=== PATIENT | female | born 1995 | race Caucasian/White ===

== ENCOUNTER 2024-02-08 20:59 | Emergency (ER) | payer OTHER, SELFPAY ==
[2024-02-08 21:27] VITALS: BP 172/138; PULSE 130; TEMP 36.8; O2SAT 99; BMI 42.3
--- NOTE | 2024-02-08 22:23 | ED.NAVMDI1 ---
HPI - Nausea/Vomiting/Diarrhea General Chief complaint: Nausea/Vomiting/Diarrhea Stated complaint: Nausea/Vomiting Time Seen by Provider: 02/08/24 22:20 Source: patient Mode of arrival: walk-in Limitations: no limitations History of Present Illness HPI Narrative: history of cannabis hyperemesis syndrome. Presents with recurrent vomiting. No diarrhea or abdominal pain. State she is starting to have cramps of her extremities. No fever. No hematemesis Related Data Home Medications ?Medication ?Instructions ?Recorded ?Confirmed amlodipine 10 mg tablet 10 mg PO QDAY 02/08/24 02/10/24 buspirone 10 mg tablet 10 mg PO .q12 02/08/24 02/10/24 hydrochlorothiazide 25 mg tablet 25 mg PO QDAY 02/08/24 02/10/24 venlafaxine 150 mg 150 mg PO QDAY 02/08/24 02/10/24 capsule,extended release 24 hr norgestimate 0.25 mg-ethinyl 1 tab PO QDAY 02/10/24 02/10/24 estradiol 35 mcg tablet ([place]) promethazine 25 mg tablet 25 mg PO .q8 PRN nausea and 02/10/24 02/10/24 vomiting Previous Rx's ?Medication ?Instructions ?Recorded promethazine 25 mg tablet 25 mg PO Q6H PRN nausea and 02/10/24 vomiting #20 tabs Allergies Allergy/AdvReac Type Severity Reaction Status Date / Time No Known Drug Allergies Allergy Verified 02/10/24 17:11 Review of Systems ROS Status of ROS 10 or more systems reviewed and unremarkable except as noted in history and below Exam Constitutional Vital Signs, click to edit/add: Last Vital Signs Temp 98.2 F 02/08/24 21:27 Pulse 88 02/09/24 01:55 Resp 16 02/09/24 01:55 BP 146/88 H 02/09/24 01:55 Pulse Ox 98 02/09/24 01:55 O2 Del Method Room Air 02/09/24 01:55 Common normals: no apparent distress, average body habitus, oriented x3, no limitations, healthy appearing, alert and well nourished [facility] Common normals: normocephalic and head/scalp atraumatic Eye Common normals: EOMs intact bilaterally, conjunctivae normal and no scleral icterus Neck & C-Spine Common normals: full ROM Respiratory Common normals: normal respiratory effort, no retractions, no use of accessory muscles and clear to auscultation bilaterally Cardio Common normals: regular rate, regular rhythm, S1 normal heart sound and S2 normal heart sound GI Common normals: Normal to inspection, nondistended, normoactive bowel sounds present, soft to palpation and non-tender Extremity Common normals: normal to inspection and full ROM Neuro Common normals: oriented x3, CN's II-XII intact bilaterally and moves all extremities Psych Appearance: grossly normal Course Vital Signs Vital signs: Vital Signs Temperature 98.2 F 02/08/24 21:27 Pulse Rate 130 H 02/08/24 21:27 Respiratory Rate 20 02/08/24 21:27 Blood Pressure 172/138 H 02/08/24 21:27 Pulse Oximetry 99 02/08/24 21:27 Temperature 98.2 F 02/08/24 21:27 Pulse Rate 88 02/09/24 01:55 Respiratory Rate 16 02/09/24 01:55 Blood Pressure 146/88 H 02/09/24 01:55 Pulse Oximetry 98 02/09/24 01:55 Oxygen Delivery Method Room Air 02/09/24 01:55 MDM - Nausea/Vomiting/Diarrhea MDM Narrative Medical decision making narrative: patient presents with cannabis induced hyperemesis. Treated with anti emetics and fluids and is feeling better . labs with elevated WBC and lactic which are not un expected. She is feeling better and is discharged home with a prescription for Phenergan to use if needed Lab Data Labs: Lab Results 02/08/24 Range/Units 22:39 WBC 15.7 H (4.0-11.0) 10^3/uL RBC 4.95 (4.20-5.40) 10^6/uL Hgb 14.0 (12.0-16.0) g/dL Hct 41.3 (36.0-48.0) % MCV 83.4 (81.0-99.0) fL MCH 28.3 (26.7-34.0) pg MCHC 33.9 (29.9-35.2) g/dL RDW 12.0 (11.0-15.0) % Plt Count 409 (150-450) 10^3/uL MPV 9.9 (9.5-13.5) fL Neut % (Auto) 68.9 (43.0-75.0) % Lymph % (Auto) 22.1 (20.5-60.0) % [place] % (Auto) 6.9 (1.7-12.0) % Eos % (Auto) 0.6 L (0.9-7.0) % Baso % (Auto) 0.8 (0.2-2.0) % Neut # (Auto) 10.8 H (1.4-6.5) 10^3/uL Lymph # (Auto) 3.5 (1.2-3.8) 10^3/uL [place] # (Auto) 1.1 H (0.3-0.8) 10^3/uL Eos # (Auto) 0.1 (0.0-0.7) 10^3/uL Baso # (Auto) 0.1 (0.0-0.1) 10^3/uL Abs Immat Gran (auto) 0.11 H (0.00-0.03) 10^3/uL Imm/Tot Granulo (auto) 0.7 H (0.0-0.5) % Sodium 141 (136-145) mmol/L Potassium 3.0 L (3.5-5.1) mmol/L Chloride 103 (98-107) mmol/L Carbon Dioxide 17.8 L (21.0-32.0) mmol/L Anion Gap 23.2 BUN 12.0 (7.0-18.0) mg/dL Creatinine 1.12 H (0.55-1.02) mg/dL Est GFR ( Amer) >60 (>=60) Est GFR (Non-Af Amer) 59 L (>=60) BUN/Creatinine Ratio 10.7 Glucose 125 H (74-106) mg/dL Lactate 4.9 H* (0.4-2.0) mmol/L Calcium 10.0 (8.5-10.1) mg/dL Total Bilirubin 1.1 H (0.2-1.0) mg/dL AST 21 (15-37) U/L ALT 35 (14-59) U/L Alkaline Phosphatase 61 (46-116) U/L Total Protein 8.8 H (6.4-8.2) g/dL Albumin 4.5 (3.4-5.0) g/dL Globulin 4.3 g/dL Albumin/Globulin Ratio 1.0 Lipase 31.0 (16.0-77.0) U/L Urine HCG, Qual Negative (NEGATIVE) Discharge Plan Discharge Stand Alone Forms: Portal Instructions Chief Complaint: Nausea/Vomiting/Diarrhea Clinical Impression: Cannabis hyperemesis syndrome concurrent with and due to cannabis abuse Patient Disposition: Home, Self-Care Prescriptions / Home Meds: No Action venlafaxine 150 mg capsule,extended release 24hr 150 mg PO QDAY amlodipine 10 mg tablet 10 mg PO QDAY buspirone 10 mg tablet 10 mg PO .q12 hydrochlorothiazide 25 mg tablet 25 mg PO QDAY norgestimate-ethinyl estradiol [[place]] 0.25-35 mg-mcg tablet 1 tab PO QDAY promethazine 25 mg tablet 25 mg PO .q8 PRN (Reason: nausea and vomiting) promethazine 25 mg tablet 25 mg PO Q6H PRN (Reason: nausea and vomiting) Qty: 20 0RF Print Language: Macanese Instructions: Cannabis Use Disorder (ED) Referrals: Physician,Non-Staff, MD [Primary Care Provider] - 1 week Discharge Date/Time: 02/09/24 01:58
[2024-02-08 22:24] VITALS: BP 152/107
[2024-02-08 22:47] LABS: Basophils Absolute Auto 0.1 10^3/uL (0.0-0.1); Basophils Percent Auto 0.8 % (0.2-2.0); Eosinophils Absolute Auto 0.1 10^3/uL (0.0-0.7); Eosinophils Percent Auto 0.6 % (0.9-7.0); Hematocrit 41.3 % (36.0-48.0); Immature Granulocytes Abs Auto 0.11 10^3/uL (0.00-0.03); Immature Granulocytes Pct Auto 0.7 % (0.0-0.5); Lymphocytes Absolute Auto 3.5 10^3/uL (1.2-3.8); Lymphocytes Percent Auto 22.1 % (20.5-60.0); Mean Corpuscular HGB Conc 33.9 g/dL (29.9-35.2); Mean Corpuscular Hemoglobin 28.3 pg (26.7-34.0); Mean Corpuscular Volume 83.4 fL (81.0-99.0); Mean Platelet Volume 9.9 fL (9.5-13.5); Monocytes Absolute Auto 1.1 10^3/uL (0.3-0.8); Monocytes Percent Auto 6.9 % (1.7-12.0); Neutrophils Absolute Auto 10.8 10^3/uL (1.4-6.5); Neutrophils Percent Auto 68.9 % (43.0-75.0); Platelet Count 409 10^3/uL (150-450); Red Blood Count 4.95 10^6/uL (4.20-5.40); White Blood Count 15.7 10^3/uL (4.0-11.0)
[2024-02-08] MEDS: PROMETHAZINE HCL 12.5 MG in 0.9 % SODIUM CHLORIDE 50 ML 202 MG IV (22:59)
[2024-02-08] MEDS: 0.9 % SODIUM CHLORIDE 1,000 ML 999 ML IV (22:59)
[2024-02-08] MEDS: DIPHENHYDRAMINE HCL 50 MG/ML VIAL IV (23:00)
[2024-02-08 23:03] LABS: Alanine Aminotransferase 35 U/L (14-59); Albumin Level 4.5 g/dL (3.4-5.0); Alkaline Phosphatase 61 U/L (46-116); Anion Gap 23.2; Aspartate Amino Transferase 21 U/L (15-37); BUN Creatinine Ratio 10.7; Bilirubin Total 1.1 mg/dL (0.2-1.0); Carbon Dioxide 17.8 mmol/L (21.0-32.0); Chloride 103 mmol/L (98-107); Estimated GFR (African America >60 (>=60); Estimated GFR (Non-African Ame 59 (>=60); Globulin 4.3 g/dL; Glucose 125 mg/dL (74-106); Sodium 141 mmol/L (136-145); Total Protein 8.8 g/dL (6.4-8.2)
[2024-02-08 23:13] LABS: Lactate/Lactic Acid 4.9 mmol/L (0.4-2.0)
[2024-02-08 23:14] LABS: HCG Qualitative Urine* NEGATIVE (NEGATIVE); Internal Control Within Normal Limits
[2024-02-09] MEDS: 0.9 % SODIUM CHLORIDE 1,000 ML 999 ML IV (00:10)
[2024-02-09 01:55] VITALS: BP 146/88; PULSE 88; O2SAT 98
== END 2024-02-09 01:58 | disposition home or self-care (01) ==
PROVIDERS: Emergency Provider Internal Medicine
DX: R11.2 Nausea with vomiting, unspecified (principal); F41.9 Anxiety disorder, unspecified
CPT/HCPCS: 36415; 80053; 83605; 83690; 84703; 85025; 96361; 96365; 96375; 99284; J1200; J2250

== ENCOUNTER 2024-02-10 17:07 | Emergency (ER) | payer OTHER, SELFPAY ==
[2024-02-10 17:11] VITALS: BP 156/122; PULSE 125; TEMP 36.9; O2SAT 97; BMI 42.3
--- NOTE | 2024-02-10 17:23 | ED.ANXIETY1 ---
HPI - Anxiety General Chief Complaint: Nausea/Vomiting/Diarrhea Stated Complaint: vomiting general weakness Time Seen by Provider: 02/10/24 17:11 Source: patient Mode of arrival: walk-in Limitations: no limitations History of Present Illness HPI narrative: 28-year-old female presents for feeling nauseous and vomiting and feeling anxious. She has felt this way for several days. She stopped eating the marijuana Gummies that she was taking for anxiety. She is no longer on clonazepam according to the patient. No hematemesis or fever but she has had some diarrhea Related Data Home Medications ?Medication ?Instructions ?Recorded ?Confirmed amlodipine 10 mg tablet 10 mg PO QDAY 02/08/24 02/10/24 buspirone 10 mg tablet 10 mg PO .q12 02/08/24 02/10/24 hydrochlorothiazide 25 mg tablet 25 mg PO QDAY 02/08/24 02/10/24 venlafaxine 150 mg 150 mg PO QDAY 02/08/24 02/10/24 capsule,extended release 24 hr norgestimate 0.25 mg-ethinyl 1 tab PO QDAY 02/10/24 02/10/24 estradiol 35 mcg tablet ([place]-Linyah) promethazine 25 mg tablet 25 mg PO .q8 PRN nausea and 02/10/24 02/10/24 vomiting Allergies Allergy/AdvReac Type Severity Reaction Status Date / Time No Known Drug Allergies Allergy Verified 02/10/24 17:11 Review of Systems ROS Narrative A ten point review of systems is negative except as noted above. Exam Narrative Exam Narrative: Nurses note and vital signs reviewed and patient is not hypoxic. General: The patient appears well and in no apparent distress. Patient is resting comfortably on cart. Skin: Warm, dry, no pallor noted. There is no rash noted. Head: Normocephalic, atraumatic Eye: Normal conjunctiva, no drainage Ears, Nose, Mouth, and Throat: oral mucosa is moist. Nares patent. Cardiovascular: Regular Rate and Rhythm Respiratory: Patient is in no distress, no accessory muscle use, lungs are clear to auscultation, no wheezing, rales or rhonchi Back: non-tender GI: Soft and nontender Musculoskeletal: The patient has no evidence of calf tenderness, no pitting edema, symmetrical pulses noted bilaterally Neurological: A&O, normal speech Psychiatric: Cooperative Constitutional Vital Signs, click to edit/add: Last Vital Signs Temp 98.4 F 02/10/24 17:11 Pulse 87 02/10/24 18:20 Resp 16 02/10/24 18:20 BP 135/89 02/10/24 18:22 Pulse Ox 97 02/10/24 17:11 O2 Del Method Room Air 02/10/24 17:11 Course Vital Signs Vital signs: Vital Signs Temperature 98.4 F 02/10/24 17:11 Pulse Rate 125 H 02/10/24 17:11 Respiratory Rate 18 02/10/24 17:11 Blood Pressure 156/122 H 02/10/24 17:11 Pulse Oximetry 97 02/10/24 17:11 Oxygen Delivery Method Room Air 02/10/24 17:11 Temperature 98.4 F 02/10/24 17:11 Pulse Rate 87 02/10/24 18:20 Respiratory Rate 16 02/10/24 18:20 Blood Pressure 135/89 02/10/24 18:22 Pulse Oximetry 97 02/10/24 17:11 Oxygen Delivery Method Room Air 02/10/24 17:11 MDM - Anxiety MDM Narrative Medical decision making narrative: Blood work is essentially negative. She is not . She is feeling much better after being given IV fluids and Zofran and IV Ativan. She is able to be discharged home. Treatment diagnosis and follow-up were discussed with the patient. Differential Diagnosis Differential diagnosis: Likely acute anxiety and other (Gastroenteritis, dehydration) Lab Data Attestation: I reviewed the patient's lab results. Labs: Lab Results 02/10/24 Range/Units 17:40 WBC 10.9 (4.0-11.0) 10^3/uL RBC 4.78 (4.20-5.40) 10^6/uL Hgb 13.8 (12.0-16.0) g/dL Hct 40.0 (36.0-48.0) % MCV 83.7 (81.0-99.0) fL MCH 28.9 (26.7-34.0) pg MCHC 34.5 (29.9-35.2) g/dL RDW 11.8 (11.0-15.0) % Plt Count 373 (150-450) 10^3/uL MPV 9.8 (9.5-13.5) fL Neut % (Auto) 66.5 (43.0-75.0) % Lymph % (Auto) 22.8 (20.5-60.0) % [place] % (Auto) 7.5 (1.7-12.0) % Eos % (Auto) 1.4 (0.9-7.0) % Baso % (Auto) 1.2 (0.2-2.0) % Neut # (Auto) 7.2 H (1.4-6.5) 10^3/uL Lymph # (Auto) 2.5 (1.2-3.8) 10^3/uL [place] # (Auto) 0.8 (0.3-0.8) 10^3/uL Eos # (Auto) 0.2 (0.0-0.7) 10^3/uL Baso # (Auto) 0.1 (0.0-0.1) 10^3/uL Abs Immat Gran (auto) 0.06 H (0.00-0.03) 10^3/uL Imm/Tot Granulo (auto) 0.6 H (0.0-0.5) % Sodium 138 (136-145) mmol/L Potassium 4.0 (3.5-5.1) mmol/L Chloride 103 (98-107) mmol/L Carbon Dioxide 22.4 (21.0-32.0) mmol/L Anion Gap 16.6 BUN 6.0 L (7.0-18.0) mg/dL Creatinine 0.71 (0.55-1.02) mg/dL Est GFR ( Amer) >60 (>=60) Est GFR (Non-Af Amer) >60 (>=60) BUN/Creatinine Ratio 8.5 Glucose 121 H (74-106) mg/dL Calcium 9.3 (8.5-10.1) mg/dL Serum HCG, Qual Negative (NEGATIVE) ECG Data Attestation: I personally reviewed and interpreted this ECG as follows: (EKG on my interpretation shows normal sinus rhythm with a rate of 97 and no acute change) Discharge Plan Discharge Stand Alone Forms: Portal Instructions Chief Complaint: Nausea/Vomiting/Diarrhea Clinical Impression: Nausea and vomiting, Anxiety Patient Disposition: Home, Self-Care Time of Disposition Decision: 18:24 Condition: Good Mode of Transportation: Private Vehicle Prescriptions / Home Meds: No Action venlafaxine 150 mg capsule,extended release 24hr 150 mg PO QDAY amlodipine 10 mg tablet 10 mg PO QDAY buspirone 10 mg tablet 10 mg PO .q12 hydrochlorothiazide 25 mg tablet 25 mg PO QDAY norgestimate-ethinyl estradiol [[place]] 0.25-35 mg-mcg tablet 1 tab PO QDAY promethazine 25 mg tablet 25 mg PO .q8 PRN (Reason: nausea and vomiting) Print Language: Chinese Instructions: Acute Nausea and Vomiting (ED), Anxiety (ED) Referrals: Physician,Non-Staff, MD [Primary Care Provider] - 1 week
[2024-02-10] MEDS: LORAZEPAM 2 MG/ML VIAL 1 MG IV (17:46)
[2024-02-10] MEDS: 0.9 % SODIUM CHLORIDE 1,000 ML 1000 ML IV (17:46)
[2024-02-10] MEDS: ONDANSETRON PF 4 MG/2 ML VIAL IV (17:46)
[2024-02-10 17:50] LABS: Basophils Absolute Auto 0.1 10^3/uL (0.0-0.1); Basophils Percent Auto 1.2 % (0.2-2.0); Eosinophils Absolute Auto 0.2 10^3/uL (0.0-0.7); Eosinophils Percent Auto 1.4 % (0.9-7.0); Hemoglobin 13.8 g/dL (12.0-16.0); Immature Granulocytes Abs Auto 0.06 10^3/uL (0.00-0.03); Immature Granulocytes Pct Auto 0.6 % (0.0-0.5); Lymphocytes Absolute Auto 2.5 10^3/uL (1.2-3.8); Lymphocytes Percent Auto 22.8 % (20.5-60.0); Mean Corpuscular HGB Conc 34.5 g/dL (29.9-35.2); Mean Corpuscular Hemoglobin 28.9 pg (26.7-34.0); Mean Corpuscular Volume 83.7 fL (81.0-99.0); Mean Platelet Volume 9.8 fL (9.5-13.5); Monocytes Absolute Auto 0.8 10^3/uL (0.3-0.8); Monocytes Percent Auto 7.5 % (1.7-12.0); Neutrophils Absolute Auto 7.2 10^3/uL (1.4-6.5); Neutrophils Percent Auto 66.5 % (43.0-75.0); Platelet Count 373 10^3/uL (150-450); Red Blood Count 4.78 10^6/uL (4.20-5.40); Red Cell Distribution Width 11.8 % (11.0-15.0); White Blood Count 10.9 10^3/uL (4.0-11.0)
--- NOTE | 2024-02-10 17:51 | ECG_ITS ---
[facility] Test Date: 2024-02-10 Pat Name: RYAN BURNS Department: Room: - Gender: Female Enrollment Coordinator: : 1995 Requested By: 1030 Order Number: [id number] Reading MD: HORACE BECKMAN Measurements Intervals [place] Rate: 97 P: 67 ND: 134 QRS: 45 QRSD: 92 T: 58 QT: 366 QTc: 421 Interpretive Statements 1100 Sinus rhythm 9110 normal ECG No previous ECG available for comparison Electronically Signed On 02-11-2024 22:13:54 EDT by HORACE BECKMAN
[2024-02-10 17:55] VITALS: PULSE 103
[2024-02-10 18:03] LABS: Anion Gap 16.6; BUN Creatinine Ratio 8.5; Calcium 9.3 mg/dL (8.5-10.1); Carbon Dioxide 22.4 mmol/L (21.0-32.0); Chloride 103 mmol/L (98-107); Estimated GFR (African America >60 (>=60); Estimated GFR (Non-African Ame >60 (>=60); Glucose 121 mg/dL (74-106); Sodium 138 mmol/L (136-145)
[2024-02-10 18:06] LABS: HCG Qualitative NEGATIVE (NEGATIVE); Internal Control Within Normal Limits
[2024-02-10 18:10] VITALS: PULSE 92
[2024-02-10 18:20] VITALS: PULSE 87
[2024-02-10 18:22] VITALS: BP 135/89
[2024-02-10 18:54] VITALS: BP 134/85; PULSE 89; O2SAT 99
== END 2024-02-10 18:54 | disposition home or self-care (01) ==
PROVIDERS: Emergency Provider Emergency Medicine
DX: R11.2 Nausea with vomiting, unspecified (principal); R41.9 Unspecified symptoms and signs involving cognitive functions and awareness
CPT/HCPCS: 36415; 80048; 84703; 85025; 93005; 96361; 96374; 96375; 99285; J2060; J2405